=== PATIENT | male | born 1995 | race Caucasian/White ===

== ENCOUNTER 2017-12-20 21:06 | Observation (INO) | payer OTHER ==
[2017-12-20] MEDS ORDERED: Sodium Chloride 0.9% 1,000 ML IV STA (22:28)
[2017-12-20 23:31] LABS: BASO % 0.3 % (0.0-2.0); EOS % 0.1 % (0.0-4.0); HEMOGLOBIN 16.3 g/dL (12.0-18.0); LYMPH # 1.1 K/uL (1.0-4.3); LYMPH % 7.9 % (20.0-40.0); MEAN CELL VOLUME 87.3 fl (80.0-94.0); MEAN CORPUSCULAR HEMOGLOBIN 29.9 pg (27.0-31.0); MEAN CORPUSCULAR HGB CONC 34.3 g/dL (33.0-37.0); MEAN PLATELET VOLUME 8.2 fl (7.2-11.7); MONO # 0.7 K/uL (0.0-0.8); MONO % 4.6 % (0.0-10.0); NEUT # 12.3 K/uL (1.8-7.0); NEUT % 87.1 % (50.0-75.0); NRBC % 0.1 % (0.0-0.0); PLATELET COUNT 197 K/uL (130-400); RBC 5.45 Mil/uL (4.40-5.90); RED CELL DISTRIBUTION WIDTH 12.8 % (11.5-14.5); WHITE BLOOD COUNT 14.1 K/uL (4.8-10.8)
[2017-12-20 23:36] LABS: INR 1.2; PROTHROMBIN TIME 13.7 Seconds (9.8-13.1); URINE BILIRUBIN NEGATIVE (NEGATIVE); URINE BLOOD NEGATIVE (NEGATIVE); URINE CLARITY CLEAR (Clear); URINE COLOR STRAW (YELLOW); URINE GLUCOSE (UA) NEG (Normal); URINE LEUKOCYTE ESTERASE NEG Leu/uL (Negative); URINE PROTEIN NEGATIVE (NEGATIVE); URINE UROBILINOGEN 0.2-1.0 mg/dL (0.2-1.0)
[2017-12-20 23:38] LABS: PARTIAL THROMBOPLASTIN TIME 33.8 Seconds (25.6-37.1)
[2017-12-20 23:41] LABS: ALB/GLOB RATIO 1.2 (1.0-2.1); ALBUMIN 4.5 g/dL (3.5-5.0); ALT/SGPT 37 U/L (21-72); AST/SGOT 25 U/L (17-59); BLOOD UREA NITROGEN 9 mg/dl (9-20); CALCIUM 9.4 mg/dL (8.4-10.2); GFR NON-AFRICAN AMERICAN > 60; LIPASE 99 U/L (23-300)
[2017-12-20 23:50] LABS: VENOUS BLOOD GAS BASE EXCESS 2.1 mmol/L (0.0-2.0); VENOUS BLOOD GAS PCO2 52 mmHg (40-60); VENOUS BLOOD GAS PO2 21 mm/Hg (30-55); VENOUS BLOOD PH 7.35 (7.32-7.43)
--- NOTE | 2017-12-21 00:39 | ED PDOC ---
HPI: Abdomen Time Seen by Provider: 12/20/17 22:18 Chief Complaint (Nursing): GI Problem Chief Complaint (Provider): GI Problem History Per: Patient History/Exam Limitations: no limitations Onset/Duration Of Symptoms: Days (x 2) Current Symptoms Are (Timing): Still Present Location Of Pain/Discomfort: RLQ Quality Of Discomfort: "Pain" Associated Symptoms: Nausea, Vomiting Additional Complaint(s): 22 year old male presents to the ED with worsening RLQ pain and associated nausea and vomiting for the last 2 days. A couple months ago, patient was diagnosed with appendicitis in [place]. At the time, he was told surgery was not an option, although patient is not sure why. He reports feeling fine until sudden onset of symptoms yesterday. Initially, felt nauseous, weak and vomited. Then developed sudden onset of RLQ pain radiating to right testicle. patient is a student at [employer]. Denies testicular bulging and swelling. PMD: none provided. Past Medical History Reviewed: Historical Data, Nursing Documentation, Vital Signs Vital Signs: Last Vital Signs Temp 97.8 F 12/21/17 20:11 Pulse 83 12/21/17 20:11 Resp 18 12/21/17 20:11 BP 99/66 L 12/21/17 20:11 Pulse Ox 99 12/21/17 20:11 - Medical History PMH: No Chronic Diseases - Surgical History Surgical History: No Surg Hx - Family History Family History: States: Unknown Family Hx - Home Medications Home Medications: Ambulatory Orders Medication Instructions Recorded No Known Home Med 12/21/17 - Allergies Allergies/Adverse Reactions: Allergies Allergy/AdvReac Type Severity Reaction Status Date / Time No Known Allergies Allergy Verified 12/20/17 21:52 Review of Systems ROS Statement: Except As Marked, All Systems Reviewed And Found Negative Constitutional: Positive for: Weakness Gastrointestinal: Positive for: Nausea, Vomiting, Abdominal Pain Physical Exam - Reviewed Nursing Documentation Reviewed: Yes Vital Signs Reviewed: Yes - Physical Exam Appears: Positive for: No Acute Distress (otherwise well; however, is in pain and hunched over, sitting on the sie of the stretcher) Head Exam: Positive for: ATRAUMATIC, NORMAL INSPECTION, NORMOCEPHALIC Skin: Positive for: Normal Color, Warm, Dry. Negative for: Rash Eye Exam: Positive for: EOMI, Normal appearance, PERRL Neck: Positive for: Normal, Painless ROM, Supple Cardiovascular/Chest: Positive for: Regular Rate, Rhythm. Negative for: Murmur Respiratory: Positive for: Normal Breath Sounds. Negative for: Respiratory Distress Gastrointestinal/Abdominal: Positive for: Tenderness (rigth lower quadrant tenderness), Rebound, Other (positive obturator's sign) Male Genital Exam: Negative for: erythema (right testicle), testicular tenderness (R), other (swelling, bulging and pain on lifting right testicle) Extremity: Positive for: Normal ROM (full at x4 ). Negative for: Deformity Neurologic/Psych: Positive for: Alert, Oriented (x 3). Negative for: Motor/ Sensory Deficits - Laboratory Results Result Diagrams: 12/21/17 07:01 12/20/17 23:28 - ECG O2 Sat by Pulse Oximetry: 100 (RA) Pulse Ox Interpretation: Normal Medical Decision Making Medical Decision Makin:27 A&P: Workup for acute appendicitis vs other cause of abdominal pain Labs including lipase and lactate sent UA, Morphine for pain and Ct abdomen and pelvis ordered 00:27 --Care endorsed to Dr. Holm pending CT, labs and reevaluation. Scribe Attestation: Documented by Tina Cochran acting as a scribe for Airam Muñoz MD Provider Scribe Attestation: All medical record entries made by the Scribe were at my direction and personally dictated by me. I have reviewed the chart and agree that the record accurately reflects my personal performance of the history, physical exam, medical decision making, and the department course for this patient. I have also personally directed, reviewed, and agree with the discharge instructions and disposition. Disposition - Clinical Impression Clinical Impression: Appendicitis - Patient ED Disposition Is Patient to be Admitted: Transfer of Care - Disposition Disposition: Transfer of Care Disposition Time: 00:27 Condition: FAIR Patient Signed Over To: Ernesto Holm Handoff Comments: pending CT, labs and reevaluation.
--- NOTE | 2017-12-21 00:47 | ED PDOC ---
- Laboratory Results Result Diagrams: 12/21/17 07:01 12/20/17 23:28 - ECG O2 Sat by Pulse Oximetry: 100 (RA) Pulse Ox Interpretation: Normal Medical Decision Making Medical Decision Makin:27 --Care endorsed to this provider pending CT, labs and reevaluation.. 02:19 CT FINDINGS: Lung bases: Intact. No mass. No consolidation. ABDOMEN: Liver: Intact. No mass. Gallbladder and bile ducts: Intact. No calcified stones. No ductal dilation. Pancreas: No mass. No ductal dilation. Spleen: No splenomegaly. Adrenals: No mass. Kidneys and ureters: No solid mass. No hydronephrosis. Stomach and bowel: Large amount of retained feces throughout the colon. PELVIS: Appendix: Appendix is thickened with nathen-appendix inflammatory changes. 4 mm appendicolith at the base of the appendix. Bladder: No mass. Reproductive: Unremarkable as visualized. ABDOMEN and PELVIS: Intraperitoneal space: Trace free fluid right the pelvis. Bones/joints: No acute fracture. No dislocation. Soft tissues: No radiopaque foreign body. Vasculature: No aortic aneurysm. Lymph nodes: No enlarged lymph nodes. IMPRESSION: 1. Acute appendicitis. 2. Trace free fluid right deep pelvis. 3. Large amount of retained feces throughout the colon. Case discussed with surgical garment fitter. ABx and cultures ordered. Patient informed of results, well appearing at this time. Dr. Mitchell made aware for admisison. Scribe Attestation: Documented by Tina Cochran acting as a scribe for Ernesto Holm MD Provider Scribe Attestation: All medical record entries made by the Scribe were at my direction and personally dictated by me. I have reviewed the chart and agree that the record accurately reflects my personal performance of the history, physical exam, medical decision making, and the department course for this patient. I have also personally directed, reviewed, and agree with the discharge instructions and disposition. Disposition - Clinical Impression Clinical Impression: Appendicitis - POA Present On Arrival: None - Disposition Disposition: Admitted as In-Patient Disposition Time: 04:00 Condition: FAIR
[2017-12-21] MEDS ORDERED: Sodium Chloride 0.9% 50 ML IV ONE (00:48)
[2017-12-21] MEDS ORDERED: Iohexol 300 100 ML IJ ONE (00:48)
[2017-12-21 01:54] LABS: BANDS 1 % (0-2); LARGE PLATELETS PRESENT; LYMPHOCYTE 6 % (20-50); MONOCYTE 5 % (0-10); NEUTROPHIL 88 % (42-75); PLATELET ESTIMATE NORMAL (NORMAL); TOTAL CELLS COUNTED 100
[2017-12-21] MEDS ORDERED: Piperacillin/Tazobact 3.375 GM in Sodium Chloride 0.9% 100 ML IVPB STA (02:47)
[2017-12-21] MEDS ORDERED: Piperacillin/Tazobact 3.375 gm Inj IVPB ONE (03:25)
--- NOTE | 2017-12-21 05:15 | CP.PCM.HP ---
History of Present Illness - History of Present Illness History of Present Illness: PMD: None Chief complaint: Abdominal Pain The patient was seen and examined in the ED HPI: 22 years old male, here in the [facility] from [place] one month ago, comes with 2 days of sharp, generalized abdominal pain , most severe at the RLQ and radiating to the mid right back and to the right groin, associated with nausea and vomiting and mild dizziness experienced in the ED. The pain was not relieved with Omeprazole. This patient had the same symptoms over a month ago in [place] where with CT abdomen he was diagnosed with Acute Appendicitis. He was treated conservatively and symptoms improved. No fever, diarrhea, dysuria nor urinary frequency. PMH: Appendicitis PSH: Denies SH: No illegal drug use; No Alcohol; Never smoked; Post graduate at [employer]. FH: States: No known family Hx Allergies: KNDA Medication: Denies: Present on Admission - Present on Admission Any Indicators Present on Admission: No History of DVT/PE: No History of Uncontrolled Diabetes: No Urinary Catheter: No Decubitus Ulcer Present: No Review of Systems - Constitutional Constitutional: absent: Chills, Fatigue, Fever, Headache - EENT Eyes: absent: Blurred Vision, Diplopia, Floaters, Requires Corrective Lenses Ears: absent: Decreased Hearing, Ear Discharge, Tinnitus Nose/Mouth/Throat: absent: Epistaxis, Nasal Congestion, Nasal Discharge, Sinus Pain, Sinus Pressure - Cardiovascular Cardiovascular: absent: Chest Pain, Dyspnea, Edema - Respiratory Respiratory: absent: Cough, Dyspnea, Wheezing, Stridor - Gastrointestinal Gastrointestinal: Abdominal Pain. absent: Constipation, Diarrhea - Genitourinary Genitourinary: absent: Dysuria, Urinary Frequency - Musculoskeletal Musculoskeletal: Back Pain. absent: Arthralgias, Muscle Cramps, Myalgias - Integumentary Integumentary: absent: Pruritus, Rash, Skin Ulcer, Sores, Striae, Swelling - Neurological Neurological: Dizziness. absent: Confusion, Focal Weakness, Headaches, Weakness - Psychiatric Psychiatric: absent: Anxiety, Depression, Panic Attacks - Endocrine Endocrine: absent: Palpitations, Polydipsia, Polyphagia, Polyuria - Hematologic/Lymphatic Hematologic: absent: Easy Bleeding, Easy Bruising Past Patient History - Past Medical History & Family History Past Medical History?: Yes - Past Social History Smoking Status: Never Smoked Chewing Tobacco Use: No Cigar Use: No Alcohol: None Drugs: Denies - CARDIAC Hx Cardiac Disorders: No - PULMONARY Hx Respiratory Disorders: No - NEUROLOGICAL Hx Neurological Disorder: No - HEENT Hx HEENT Problems: No - RENAL Hx Chronic Kidney Disease: No - ENDOCRINE/METABOLIC Hx Endocrine Disorders: No - HEMATOLOGICAL/ONCOLOGICAL Hx Blood Disorders: No - INTEGUMENTARY Hx Dermatological Problems: No - MUSCULOSKELETAL/RHEUMATOLOGICAL Hx Musculoskeletal Disorders: No - GASTROINTESTINAL Hx Gastrointestinal Disorders: No Other/Comment: Appendicitis - GENITOURINARY/GYNECOLOGICAL Hx Genitourinary Disorders: No - PSYCHIATRIC Hx Psychophysiologic Disorder: No Hx Substance Use: No - SURGICAL HISTORY Hx Surgeries: No - ANESTHESIA Hx Anesthesia: No Meds Allergies/Adverse Reactions: Allergies Allergy/AdvReac Type Severity Reaction Status Date / Time No Known Allergies Allergy Verified 12/20/17 21:52 Physical Exam - Constitutional Appears: No Acute Distress - Head Exam Head Exam: ATRAUMATIC, NORMAL INSPECTION, NORMOCEPHALIC - Eye Exam Eye Exam: EOMI, Normal appearance Pupil Exam: NORMAL ACCOMODATION, PERRL - ENT Exam ENT Exam: Mucous Membranes Moist, Normal Exam, Normal External Ear Exam - Neck Exam Neck exam: Positive for: Full Rom, Normal Inspection. Negative for: Lymphadenopathy, Tenderness - Respiratory Exam Respiratory Exam: Clear to Auscultation Bilateral. absent: Rales, Rhonchi, Wheezes - Cardiovascular Exam Cardiovascular Exam: REGULAR RHYTHM, RRR, +S1, +S2 - GI/Abdominal Exam Additional comments: Flat, Soft, decreased Bowel sounds, Tender at the RLQ with no guarding, mild localized rebound tenderness. - Rectal Exam Rectal Exam: Deferred - Extremities Exam Extremities exam: Positive for: full ROM, normal inspection. Negative for: calf tenderness, pedal edema - Back Exam Back exam: CVA tenderness (R), NORMAL INSPECTION. absent: CVA tenderness (L) - Neurological Exam Neurological exam: Alert, CN II-XII Intact, Oriented x3, Reflexes Normal - Psychiatric Exam Psychiatric exam: Normal Affect, Normal Mood - Skin Skin Exam: Dry, Intact, Normal Color, Warm Results - Vital Signs Recent Vital Signs: Last Vital Signs Temp 98.4 F 12/21/17 03:59 Pulse 63 12/21/17 03:59 Resp 18 12/21/17 03:59 BP 100/56 L 12/21/17 03:59 Pulse Ox 99 09/16/18 03:59 - Labs Result Diagrams: 12/20/17 23:28 12/20/17 23:28 Labs: Laboratory Results - last 24 hr 12/20/17 12/20/17 12/20/17 22:55 23:28 23:28 WBC 14.1 H RBC 5.45 Hgb 16.3 Hct 47.5 MCV 87.3 MCH 29.9 MCHC 34.3 RDW 12.8 Plt Count 197 MPV 8.2 Neut % (Auto) 87.1 H Lymph % (Auto) 7.9 L Chase % (Auto) 4.6 Eos % (Auto) 0.1 Baso % (Auto) 0.3 Neut # (Auto) 12.3 H Lymph # (Auto) 1.1 Chase # (Auto) 0.7 Eos # (Auto) 0.0 Baso # (Auto) 0.0 Neutrophils % (Manual) 88 H Band Neutrophils % 1 Lymphocytes % (Manual) 6 L Monocytes % (Manual) 5 Platelet Estimate Normal Large Platelets Present PT INR APTT pO2 VBG pH VBG pCO2 VBG HCO3 VBG Total CO2 VBG O2 Sat (Calc) VBG Base Excess VBG Potassium Glucose Lactate FiO2 Sodium 139 Potassium 4.1 Chloride 102 Carbon Dioxide 27 Anion Gap 14 BUN 9 Creatinine 0.9 Est GFR ( Amer) > 60 Est GFR (Non-Af Amer) > 60 Random Glucose 110 Calcium 9.4 Total Bilirubin 0.9 AST 25 ALT 37 Alkaline Phosphatase 75 Total Protein 8.3 H Albumin 4.5 Globulin 3.8 Albumin/Globulin Ratio 1.2 Lipase 99 Venous Blood Potassium Urine Color Urine Clarity Urine pH Ur Specific Pruden Urine Protein Urine Glucose (UA) Urine Ketones Urine Blood Urine Nitrate Urine Bilirubin Urine Urobilinogen Ur Leukocyte Esterase Urine RBC (Auto) Urine Microscopic WBC Blood Type B POSITIVE Blood Type Confirm Antibody Screen Negative BBK History Checked No verified bt 12/20/17 12/20/17 12/20/17 23:28 23:28 23:46 WBC RBC Hgb Hct MCV MCH MCHC RDW Plt Count MPV Neut % (Auto) Lymph % (Auto) Chase % (Auto) Eos % (Auto) Baso % (Auto) Neut # (Auto) Lymph # (Auto) Chase # (Auto) Eos # (Auto) Baso # (Auto) Neutrophils % (Manual) Band Neutrophils % Lymphocytes % (Manual) Monocytes % (Manual) Platelet Estimate Large Platelets PT 13.7 H INR 1.2 APTT 33.8 pO2 21 L VBG pH 7.35 VBG pCO2 52 VBG HCO3 24.8 VBG Total CO2 30.3 H VBG O2 Sat (Calc) 35.1 L VBG Base Excess 2.1 H VBG Potassium 4.1 Glucose 113 H Lactate 1.4 FiO2 21.0 Sodium 136.0 Potassium Chloride 102.0 Carbon Dioxide Anion Gap BUN Creatinine Est GFR ( Amer) Est GFR (Non-Af Amer) Random Glucose Calcium Total Bilirubin AST ALT Alkaline Phosphatase Total Protein Albumin Globulin Albumin/Globulin Ratio Lipase Venous Blood Potassium 4.1 Urine Color Straw Urine Clarity Clear Urine pH 7.0 Ur Specific Pruden 1.006 Urine Protein Negative Urine Glucose (UA) Neg Urine Ketones Negative Urine Blood Negative Urine Nitrate Negative Urine Bilirubin Negative Urine Urobilinogen 0.2-1.0 Ur Leukocyte Esterase Neg Urine RBC (Auto) 1 Urine Microscopic WBC < 1 Blood Type Blood Type Confirm Antibody Screen BBK History Checked 12/21/17 00:31 WBC RBC Hgb Hct MCV MCH MCHC RDW Plt Count MPV Neut % (Auto) Lymph % (Auto) Chase % (Auto) Eos % (Auto) Baso % (Auto) Neut # (Auto) Lymph # (Auto) Chase # (Auto) Eos # (Auto) Baso # (Auto) Neutrophils % (Manual) Band Neutrophils % Lymphocytes % (Manual) Monocytes % (Manual) Platelet Estimate Large Platelets PT INR APTT pO2 VBG pH VBG pCO2 VBG HCO3 VBG Total CO2 VBG O2 Sat (Calc) VBG Base Excess VBG Potassium Glucose Lactate FiO2 Sodium Potassium Chloride Carbon Dioxide Anion Gap BUN Creatinine Est GFR ( Amer) Est GFR (Non-Af Amer) Random Glucose Calcium Total Bilirubin AST ALT Alkaline Phosphatase Total Protein Albumin Globulin Albumin/Globulin Ratio Lipase Venous Blood Potassium Urine Color Urine Clarity Urine pH Ur Specific Pruden Urine Protein Urine Glucose (UA) Urine Ketones Urine Blood Urine Nitrate Urine Bilirubin Urine Urobilinogen Ur Leukocyte Esterase Urine RBC (Auto) Urine Microscopic WBC Blood Type Blood Type Confirm B POSITIVE Antibody Screen BBK History Checked - EKG Data EKG comments: NSR 81/min - Imaging and Cardiology CT scan - abdomen Status: Report reviewed by me Additional comment: FINDINGS: Lung bases: Intact. No mass. No consolidation. ABDOMEN: Liver: Intact. No mass. Gallbladder and bile ducts: Intact. No calcified stones. No ductal dilation. Pancreas: No mass. No ductal dilation. Spleen: No splenomegaly. Adrenals: No mass. Kidneys and ureters: No solid mass. No hydronephrosis. Stomach and bowel: Large amount of retained feces throughout the colon. PELVIS: Appendix: Appendix is thickened with nathen-appendix inflammatory changes. 4 mm appendicolith at the base of the appendix. Bladder: No mass. Reproductive: Unremarkable as visualized. ABDOMEN and PELVIS: Intraperitoneal space: Trace free fluid right the pelvis. Bones/joints: No acute fracture. No dislocation. Soft tissues: No radiopaque foreign body. Vasculature: No aortic aneurysm. Lymph nodes: No enlarged lymph nodes. IMPRESSION: 1. Acute appendicitis. 2. Trace free fluid right deep pelvis. 3. Large amount of retained feces throughout the colon. Assessment & Plan - Assessment and Plan (Free Text) Assessment: #. Acute Appencicitis #. Constipation Plan: 22 years old male, diagnosed with Appendicitis in [place] over one month ago, treated conservatively, now comes with 2 days of RLQ abdominal pain with nausea , vomiting and dizziness. no fever, dusuria nor diarrhea. #. Acute Appendicitis - Consult Surgery , Dr Palacios - NPO - IV Fluids - Antibiotics Zosyn - Zofran for nausea/vomits - Pain management with Morphine #. Constipation - Enema #. Stress ulcer Prophylaxis with Pantoprazole #. DVT prophylaxis. - SCD now and Lovenox starting on day after surgery #. Code Status: Full - Date & Time Date: 12/21/17 Time: 05:15
[2017-12-21] MEDS: Lactated Ringer's 1,000 ML IV SCH ×3 (05:30→16:40)
--- NOTE | 2017-12-21 06:36 | CP.PCM.CON ---
<Kassandra Sousa - Last Filed: 12/21/17 07:25> History of Present Illness - History of Present Illness History of Present Illness: Surgery Consult: Dr. Palacios Pt is a 22M with no significant PMHx who presented to [facility] with complaints of abdominal pain that started yesterday evening. Pt states he started having dull abdominal pain around his umbillicus that eventually localized to the RLQ. He admits to associated nausea and 2 episodes of non-bloody, non-bilious vomiting. He denies diarrhea/constipation. Pt notes that he had a similar episode 8 months ago in [place] and he was given antibiotics which improved his pain however no surgery was done at the time. In the ER, pt had a CT abd/pelvis which showed dilated appendix with appendicolith consisted with acute appendicitis. Surgery called to evaluate. Currently, pt is resting comfortably and states his abdominal pain is a little better after getting the pain medication. He denies any more episodes of vomiting. Denies fevers/chills, chest pain or SOB. PMHx: denies PSHx: denies SocialHx: denies smoking, EtOH/drugs NKDA Review of Systems - Review of Systems All systems: reviewed and no additional remarkable complaints except (as per HPI ) Past Patient History - Past Medical History & Family History Past Medical History?: Yes - Past Social History Smoking Status: Never Smoked Chewing Tobacco Use: No Cigar Use: No Alcohol: None Drugs: Denies - CARDIAC Hx Cardiac Disorders: No - PULMONARY Hx Respiratory Disorders: No - NEUROLOGICAL Hx Neurological Disorder: No - HEENT Hx HEENT Problems: No - RENAL Hx Chronic Kidney Disease: No - ENDOCRINE/METABOLIC Hx Endocrine Disorders: No - HEMATOLOGICAL/ONCOLOGICAL Hx Blood Disorders: No - INTEGUMENTARY Hx Dermatological Problems: No - MUSCULOSKELETAL/RHEUMATOLOGICAL Hx Musculoskeletal Disorders: No - GASTROINTESTINAL Hx Gastrointestinal Disorders: No Other/Comment: Appendicitis - GENITOURINARY/GYNECOLOGICAL Hx Genitourinary Disorders: No - PSYCHIATRIC Hx Psychophysiologic Disorder: No Hx Substance Use: No - SURGICAL HISTORY Hx Surgeries: No - ANESTHESIA Hx Anesthesia: No Meds Allergies/Adverse Reactions: Allergies Allergy/AdvReac Type Severity Reaction Status Date / Time No Known Allergies Allergy Verified 12/20/17 21:52 - Medications Medications: Current Medications Lactated Ringer's (Lactated Ringer's) 1,000 mls @ 100 mls/hr IV .Q10H [facility] Stop: 12/23/17 04:16 Last Admin: 12/21/17 05:30 Dose: 100 mls/hr Piperacillin Sod/Tazobactam (Sod 3.375 gm/ Sodium Chloride) 100 mls @ 100 mls/ hr IVPB Q6 [facility] PRN Reason: Protocol Stop: 12/23/17 10:01 Morphine Sulfate (Morphine) 2 mg IVP Q4 PRN PRN Reason: Pain, moderate (4-7) Ondansetron HCl (Zofran Inj) 4 mg IVP Q4 PRN PRN Reason: Nausea/Vomiting Pantoprazole Sodium (Protonix Inj) 40 mg IVP DAILY [facility] Physical Exam - Constitutional Appears: Well, No Acute Distress - Head Exam Head Exam: ATRAUMATIC, NORMOCEPHALIC - Eye Exam Eye Exam: Normal appearance - ENT Exam ENT Exam: Mucous Membranes Moist - Respiratory Exam Respiratory Exam: NORMAL BREATHING PATTERN - Cardiovascular Exam Cardiovascular Exam: RRR - GI/Abdominal Exam GI & Abdominal Exam: Soft, Tenderness (in the RLQ ). absent: Distended, Guarding, Rebound - Neurological Exam Neurological exam: Alert, Oriented x3 - Skin Skin Exam: Dry, Warm Results - Vital Signs Recent Vital Signs: Last Vital Signs Temp 98.5 F 12/21/17 05:29 Pulse 57 L 12/21/17 05:29 Resp 18 12/21/17 05:29 BP 100/52 L 12/21/17 05:29 Pulse Ox 99 12/21/17 05:29 - Labs Result Diagrams: 12/20/17 23:28 12/20/17 23:28 Labs: Laboratory Results - last 24 hr 12/20/17 12/20/17 12/20/17 22:55 23:28 23:28 WBC 14.1 H RBC 5.45 Hgb 16.3 Hct 47.5 MCV 87.3 MCH 29.9 MCHC 34.3 RDW 12.8 Plt Count 197 MPV 8.2 Neut % (Auto) 87.1 H Lymph % (Auto) 7.9 L [place] % (Auto) 4.6 Eos % (Auto) 0.1 Baso % (Auto) 0.3 Neut # (Auto) 12.3 H Lymph # (Auto) 1.1 [place] # (Auto) 0.7 Eos # (Auto) 0.0 Baso # (Auto) 0.0 Neutrophils % (Manual) 88 H Band Neutrophils % 1 Lymphocytes % (Manual) 6 L Monocytes % (Manual) 5 Platelet Estimate Normal Large Platelets Present PT INR APTT pO2 VBG pH VBG pCO2 VBG HCO3 VBG Total CO2 VBG O2 Sat (Calc) VBG Base Excess VBG Potassium Glucose Lactate FiO2 Sodium 139 Potassium 4.1 Chloride 102 Carbon Dioxide 27 Anion Gap 14 BUN 9 Creatinine 0.9 Est GFR ( Amer) > 60 Est GFR (Non-Af Amer) > 60 Random Glucose 110 Calcium 9.4 Total Bilirubin 0.9 AST 25 ALT 37 Alkaline Phosphatase 75 Total Protein 8.3 H Albumin 4.5 Globulin 3.8 Albumin/Globulin Ratio 1.2 Lipase 99 Venous Blood Potassium Urine Color Urine Clarity Urine pH Ur Specific [place] Urine Protein Urine Glucose (UA) Urine Ketones Urine Blood Urine Nitrate Urine Bilirubin Urine Urobilinogen Ur Leukocyte Esterase Urine RBC (Auto) Urine Microscopic WBC Blood Type B POSITIVE Blood Type Confirm Antibody Screen Negative BBK History Checked No verified bt 12/20/17 12/20/17 12/20/17 23:28 23:28 23:46 WBC RBC Hgb Hct MCV MCH MCHC RDW Plt Count MPV Neut % (Auto) Lymph % (Auto) [place] % (Auto) Eos % (Auto) Baso % (Auto) Neut # (Auto) Lymph # (Auto) [place] # (Auto) Eos # (Auto) Baso # (Auto) Neutrophils % (Manual) Band Neutrophils % Lymphocytes % (Manual) Monocytes % (Manual) Platelet Estimate Large Platelets PT 13.7 H INR 1.2 APTT 33.8 pO2 21 L VBG pH 7.35 VBG pCO2 52 VBG HCO3 24.8 VBG Total CO2 30.3 H VBG O2 Sat (Calc) 35.1 L VBG Base Excess 2.1 H VBG Potassium 4.1 Glucose 113 H Lactate 1.4 FiO2 21.0 Sodium 136.0 Potassium Chloride 102.0 Carbon Dioxide Anion Gap BUN Creatinine Est GFR ( Amer) Est GFR (Non-Af Amer) Random Glucose Calcium Total Bilirubin AST ALT Alkaline Phosphatase Total Protein Albumin Globulin Albumin/Globulin Ratio Lipase Venous Blood Potassium 4.1 Urine Color Straw Urine Clarity Clear Urine pH 7.0 Ur Specific [place] 1.006 Urine Protein Negative Urine Glucose (UA) Neg Urine Ketones Negative Urine Blood Negative Urine Nitrate Negative Urine Bilirubin Negative Urine Urobilinogen 0.2-1.0 Ur Leukocyte Esterase Neg Urine RBC (Auto) 1 Urine Microscopic WBC < 1 Blood Type Blood Type Confirm Antibody Screen BBK History Checked 12/21/17 00:31 WBC RBC Hgb Hct MCV MCH MCHC RDW Plt Count MPV Neut % (Auto) Lymph % (Auto) [place] % (Auto) Eos % (Auto) Baso % (Auto) Neut # (Auto) Lymph # (Auto) [place] # (Auto) Eos # (Auto) Baso # (Auto) Neutrophils % (Manual) Band Neutrophils % Lymphocytes % (Manual) Monocytes % (Manual) Platelet Estimate Large Platelets PT INR APTT pO2 VBG pH VBG pCO2 VBG HCO3 VBG Total CO2 VBG O2 Sat (Calc) VBG Base Excess VBG Potassium Glucose Lactate FiO2 Sodium Potassium Chloride Carbon Dioxide Anion Gap BUN Creatinine Est GFR ( Amer) Est GFR (Non-Af Amer) Random Glucose Calcium Total Bilirubin AST ALT Alkaline Phosphatase Total Protein Albumin Globulin Albumin/Globulin Ratio Lipase Venous Blood Potassium Urine Color Urine Clarity Urine pH Ur Specific [place] Urine Protein Urine Glucose (UA) Urine Ketones Urine Blood Urine Nitrate Urine Bilirubin Urine Urobilinogen Ur Leukocyte Esterase Urine RBC (Auto) Urine Microscopic WBC Blood Type Blood Type Confirm B POSITIVE Antibody Screen BBK History Checked - Imaging and Cardiology CT scan - abdomen Status: Image reviewed by me, Report reviewed by me Assessment & Plan - Assessment and Plan (Free Text) Assessment: 22M with acute appendicitis Plan: - Keep NPO with IVF - IV ABX - plan for OR for lap appendectomy - d/w Dr. Suzanne Sousa <Esau Palacios - Last Filed: 12/21/17 16:00> History of Present Illness - History of Present Illness History of Present Illness: Patient was seen and examined at the bedside. Agree with resident's note above. Meds - Medications Medications: Current Medications Hydromorphone HCl (Dilaudid) 2 mg IVP Q4 PRN PRN Reason: Pain, moderate (4-7) Lactated Ringer's (Lactated Ringer's) 1,000 mls @ 100 mls/hr IV .Q10H [facility] Stop: 12/23/17 04:16 Last Admin: 12/21/17 05:30 Dose: 100 mls/hr Piperacillin Sod/Tazobactam (Sod 3.375 gm/ Sodium Chloride) 100 mls @ 100 mls/ hr IVPB Q6 [facility] PRN Reason: Protocol Stop: 12/23/17 10:01 Last Admin: 12/21/17 09:10 Dose: 100 mls/hr Lactated Ringer's (Lactated Ringer's) 1,000 mls @ 75 mls/hr IV .[id number] [facility] Meperidine HCl (Demerol) 25 mg IVP ONCE PRN PRN Reason: Shivering/Rigor Stop: 12/21/17 17:46 Ondansetron HCl (Zofran Inj) 4 mg IVP Q4 PRN PRN Reason: Nausea/Vomiting Oxycodone/Acetaminophen (Percocet 5/325 Mg Tab) 1 tab PO Q4 PRN PRN Reason: Pain, moderate (4-7) Stop: 12/24/17 15:47 Oxycodone/Acetaminophen (Percocet 5/325 Mg Tab) 2 tab PO Q4 PRN PRN Reason: Pain, severe (8-10) Stop: 12/24/17 15:47 Pantoprazole Sodium (Protonix Inj) 40 mg IVP DAILY [facility] Last Admin: 12/21/17 09:12 Dose: 40 mg Physical Exam - GI/Abdominal Exam Additional comments: soft, RLQ tenderness, ND, BS+, no rebound, no guarding Results - Vital Signs Recent Vital Signs: Last Vital Signs Temp 97.9 F 12/21/17 07:55 Pulse 61 12/21/17 07:55 Resp 19 12/21/17 07:55 BP 97/58 L 12/21/17 07:55 Pulse Ox 99 12/21/17 07:55 - Labs Result Diagrams: 12/21/17 07:01 12/20/17 23:28 Labs: Laboratory Results - last 24 hr 12/20/17 12/20/17 12/20/17 22:55 23:28 23:28 WBC 14.1 H RBC 5.45 Hgb 16.3 Hct 47.5 MCV 87.3 MCH 29.9 MCHC 34.3 RDW 12.8 Plt Count 197 MPV 8.2 Neut % (Auto) 87.1 H Lymph % (Auto) 7.9 L [place] % (Auto) 4.6 Eos % (Auto) 0.1 Baso % (Auto) 0.3 Neut # (Auto) 12.3 H Lymph # (Auto) 1.1 [place] # (Auto) 0.7 Eos # (Auto) 0.0 Baso # (Auto) 0.0 Neutrophils % (Manual) 88 H Band Neutrophils % 1 Lymphocytes % (Manual) 6 L Monocytes % (Manual) 5 Platelet Estimate Normal Large Platelets Present PT INR APTT pO2 VBG pH VBG pCO2 VBG HCO3 VBG Total CO2 VBG O2 Sat (Calc) VBG Base Excess VBG Potassium Glucose Lactate FiO2 Sodium 139 Potassium 4.1 Chloride 102 Carbon Dioxide 27 Anion Gap 14 BUN 9 Creatinine 0.9 Est GFR ( Amer) > 60 Est GFR (Non-Af Amer) > 60 Random Glucose 110 Calcium 9.4 Total Bilirubin 0.9 AST 25 ALT 37 Alkaline Phosphatase 75 Total Protein 8.3 H Albumin 4.5 Globulin 3.8 Albumin/Globulin Ratio 1.2 Lipase 99 Venous Blood Potassium Urine Color Urine Clarity Urine pH Ur Specific [place] Urine Protein Urine Glucose (UA) Urine Ketones Urine Blood Urine Nitrate Urine Bilirubin Urine Urobilinogen Ur Leukocyte Esterase Urine RBC (Auto) Urine Microscopic WBC Blood Type B POSITIVE Blood Type Confirm Antibody Screen Negative BBK History Checked No verified bt 12/20/17 12/20/17 12/20/17 23:28 23:28 23:46 WBC RBC Hgb Hct MCV MCH MCHC RDW Plt Count MPV Neut % (Auto) Lymph % (Auto) [place] % (Auto) Eos % (Auto) Baso % (Auto) Neut # (Auto) Lymph # (Auto) [place] # (Auto) Eos # (Auto) Baso # (Auto) Neutrophils % (Manual) Band Neutrophils % Lymphocytes % (Manual) Monocytes % (Manual) Platelet Estimate Large Platelets PT 13.7 H INR 1.2 APTT 33.8 pO2 21 L VBG pH 7.35 VBG pCO2 52 VBG HCO3 24.8 VBG Total CO2 30.3 H VBG O2 Sat (Calc) 35.1 L VBG Base Excess 2.1 H VBG Potassium 4.1 Glucose 113 H Lactate 1.4 FiO2 21.0 Sodium 136.0 Potassium Chloride 102.0 Carbon Dioxide Anion Gap BUN Creatinine Est GFR ( Amer) Est GFR (Non-Af Amer) Random Glucose Calcium Total Bilirubin AST ALT Alkaline Phosphatase Total Protein Albumin Globulin Albumin/Globulin Ratio Lipase Venous Blood Potassium 4.1 Urine Color Straw Urine Clarity Clear Urine pH 7.0 Ur Specific [place] 1.006 Urine Protein Negative Urine Glucose (UA) Neg Urine Ketones Negative Urine Blood Negative Urine Nitrate Negative Urine Bilirubin Negative Urine Urobilinogen 0.2-1.0 Ur Leukocyte Esterase Neg Urine RBC (Auto) 1 Urine Microscopic WBC < 1 Blood Type Blood Type Confirm Antibody Screen BBK History Checked 12/21/17 12/21/17 00:31 07:01 WBC 11.2 H RBC 5.05 Hgb 15.1 Hct 44.1 MCV 87.4 MCH 29.9 MCHC 34.3 RDW 12.8 Plt Count 181 MPV 7.8 Neut % (Auto) 75.3 H Lymph % (Auto) 17.0 L [place] % (Auto) 7.1 Eos % (Auto) 0.1 Baso % (Auto) 0.5 Neut # (Auto) 8.4 H Lymph # (Auto) 1.9 [place] # (Auto) 0.8 Eos # (Auto) 0.0 Baso # (Auto) 0.1 Neutrophils % (Manual) Band Neutrophils % Lymphocytes % (Manual) Monocytes % (Manual) Platelet Estimate Large Platelets PT INR APTT pO2 VBG pH VBG pCO2 VBG HCO3 VBG Total CO2 VBG O2 Sat (Calc) VBG Base Excess VBG Potassium Glucose Lactate FiO2 Sodium Potassium Chloride Carbon Dioxide Anion Gap BUN Creatinine Est GFR ( Amer) Est GFR (Non-Af Amer) Random Glucose Calcium Total Bilirubin AST ALT Alkaline Phosphatase Total Protein Albumin Globulin Albumin/Globulin Ratio Lipase Venous Blood Potassium Urine Color Urine Clarity Urine pH Ur Specific [place] Urine Protein Urine Glucose (UA) Urine Ketones Urine Blood Urine Nitrate Urine Bilirubin Urine Urobilinogen Ur Leukocyte Esterase Urine RBC (Auto) Urine Microscopic WBC Blood Type Blood Type Confirm B POSITIVE Antibody Screen BBK History Checked
[2017-12-21 07:42] LABS: BASO # 0.1 K/uL (0.0-0.2); BASO % 0.5 % (0.0-2.0); EOS % 0.1 % (0.0-4.0); HEMOGLOBIN 15.1 g/dL (12.0-18.0); LYMPH # 1.9 K/uL (1.0-4.3); MEAN CELL VOLUME 87.4 fl (80.0-94.0); MEAN CORPUSCULAR HEMOGLOBIN 29.9 pg (27.0-31.0); MEAN CORPUSCULAR HGB CONC 34.3 g/dL (33.0-37.0); MEAN PLATELET VOLUME 7.8 fl (7.2-11.7); MONO # 0.8 K/uL (0.0-0.8); MONO % 7.1 % (0.0-10.0); NEUT # 8.4 K/uL (1.8-7.0); NEUT % 75.3 % (50.0-75.0); NRBC % 0.1 % (0.0-0.0); RBC 5.05 Mil/uL (4.40-5.90); RED CELL DISTRIBUTION WIDTH 12.8 % (11.5-14.5); WHITE BLOOD COUNT 11.2 K/uL (4.8-10.8)
--- NOTE | 2017-12-21 08:04 | CARD ---
APPROVED REPORT Date of service: 12/20/2017 <Conclusion> Normal sinus rhythm Normal ECG
--- NOTE | 2017-12-21 08:56 | CP.PCM.PN ---
Subjective - Date & Time of Evaluation Date of Evaluation: 12/21/17 Time of Evaluation: 08:55 Objective - Vital Signs/Intake and Output Vital Signs (last 24 hours): Temp Pulse Resp BP Pulse Ox 97.9 F 61 19 97/58 L 99 12/21/17 07:55 12/21/17 07:55 12/21/17 07:55 12/21/17 07:55 12/21/17 07:55 - Medications Medications: Current Medications Lactated Ringer's (Lactated Ringer's) 1,000 mls @ 100 mls/hr IV .Q10H [facility] Stop: 12/23/17 04:16 Last Admin: 12/21/17 05:30 Dose: 100 mls/hr Piperacillin Sod/Tazobactam (Sod 3.375 gm/ Sodium Chloride) 100 mls @ 100 mls/ hr IVPB Q6 [facility] PRN Reason: Protocol Stop: 12/23/17 10:01 Morphine Sulfate (Morphine) 2 mg IVP Q4 PRN PRN Reason: Pain, moderate (4-7) Ondansetron HCl (Zofran Inj) 4 mg IVP Q4 PRN PRN Reason: Nausea/Vomiting Pantoprazole Sodium (Protonix Inj) 40 mg IVP DAILY [facility] - Labs Labs: 12/21/17 07:01 12/20/17 23:28 PT 13.7 Seconds (9.8-13.1) H 12/20/17 23:28 INR 1.2 12/20/17 23:28 APTT 33.8 Seconds (25.6-37.1) 12/20/17 23:28 - Constitutional Appears: Well, Non-toxic, No Acute Distress - Cardiovascular Exam Cardiovascular Exam: REGULAR RHYTHM, RRR, +S1, +S2. absent: Tachycardia, Clicks , Diastolic murmur, Gallop, JVD, Rubs, Murmur - GI/Abdominal Exam GI & Abdominal Exam: Soft, Tenderness (RLQ tenderness- at Mcburney's point; + Rovsing's sign; ), Normal Bowel Sounds. absent: Distended, Guarding, Rigid, Rebound
[2017-12-21] MEDS: Piperacillin/Tazobact 3.375 GM in Sodium Chloride 0.9% 100 ML IVPB SCH ×3 (09:10→22:24)
--- NOTE | 2017-12-21 11:52 | CT ---
Date of service: 12/21/2017 PROCEDURE: CT Abdomen and Pelvis with contrast HISTORY: RLQ pain COMPARISON: None. TECHNIQUE: Contrast dose: 90 milliliters Radiation dose: Total exam DLP = 330 mGy-cm. This CT exam was performed using one or more of the following dose reduction techniques: Automated exposure control, adjustment of the mA and/or kV according to patient size, and/or use of iterative reconstruction technique. FINDINGS: LOWER THORAX: Unremarkable. LIVER: Unremarkable. No gross lesion or ductal dilatation. GALLBLADDER AND BILE DUCTS: Unremarkable. PANCREAS: Unremarkable. No gross lesion or ductal dilatation. SPLEEN: Unremarkable. ADRENALS: Unremarkable. No mass. KIDNEYS AND URETERS: Unremarkable. No hydronephrosis. No solid mass. VASCULATURE: Unremarkable. No aortic aneurysm. BOWEL: Unremarkable. No obstruction. No gross mural thickening. APPENDIX: There is an abnormal appendix consistent with appendicitis. There is dilated appendix and 4 millimeter proximal appendicolith. In addition there is periappendiceal inflammatory changes and appendiceal wall thickening. No focal fluid collection is noted to suggest appendiceal abscess. Mild adjacent right lower pelvic fluid is identified. A few small scattered small lymph nodes are seen. PERITONEUM: Mild ascites in the right lower quadrant. LYMPH NODES: A few small lymph nodes are noted in the right lower quadrant. BLADDER: Unremarkable. REPRODUCTIVE: Unremarkable. BONES: No acute fracture. OTHER FINDINGS: None. IMPRESSION: Imaging findings consistent with appendicitis. This agrees with preliminary report.
[2017-12-21] MEDS ORDERED: Midazolam 2 MG/2 ML VIAL ONE (14:11)
[2017-12-21] MEDS ORDERED: Propofol 10 mg/ml Inj (20 ML) ONE (14:11)
[2017-12-21] MEDS ORDERED: Rocuronium 10 mg/ml (5 ml) ONE (14:13)
[2017-12-21] MEDS ORDERED: Lactated Ringer's 500 ML IV ONE (14:39)
[2017-12-21] MEDS ORDERED: Bupivacaine HCl 0.5% PF (30 ml) Inj ONE (15:00)
[2017-12-21] MEDS ORDERED: Desflurane Inhalation Anesthetic Liq (240 ml) ONE (15:11)
[2017-12-21] MEDS ORDERED: Bupivacaine 0.5% Inj(30mL) IJ ONE (15:32)
[2017-12-21] MEDS ORDERED: Lactated Ringer's 1,000 ML IV SCH (15:45)
[2017-12-21] MEDS ORDERED: Oxycodone/Acetaminophen 5/325 mg Tab PO PRN ×2 (15:46)
--- NOTE | 2017-12-21 15:49 | PCM.SURG1 ---
Surgeon's Initial Post Op Note - Surgeon's Notes Surgeon: Dr. Palacios Professional Skater: Migdalia PGY2 Type of Anesthesia: General Endo Anesthesia Administered By: Dr. Burns Pre-Operative Diagnosis: Acute appendicitis Operative Findings: Acute appendicitis Post-Operative Diagnosis: Acute appendicitis Operation Performed: Laparoscopic Appendectomy Specimen/Specimens Removed: Appendix Estimated Blood Loss: EBL {In ML}: 5 Blood Products Given: N/A Drains Used: No Drains Post-Op Condition: Good Date of Surgery/Procedure: 12/21/17 Time of Surgery/Procedure: 15:49
[2017-12-22 03:47] VITALS: O2SAT 98
[2017-12-22] MEDS: Piperacillin/Tazobact 3.375 GM in Sodium Chloride 0.9% 100 ML IVPB SCH ×2 (03:47→09:30)
[2017-12-22 06:23] LABS: MEAN CORPUSCULAR HEMOGLOBIN 30.5 pg (27.0-31.0); MEAN CORPUSCULAR HGB CONC 35.1 g/dL (33.0-37.0); RBC 4.58 Mil/uL (4.40-5.90); RED CELL DISTRIBUTION WIDTH 12.8 % (11.5-14.5)
[2017-12-22 06:46] LABS: BLOOD UREA NITROGEN 10 mg/dl (9-20); CALCIUM 8.5 mg/dL (8.4-10.2); GFR NON-AFRICAN AMERICAN > 60
--- NOTE | 2017-12-22 07:32 | CP.PCM.PN ---
Subjective - Date & Time of Evaluation Date of Evaluation: 12/22/17 Time of Evaluation: 07:32 Objective - Vital Signs/Intake and Output Vital Signs (last 24 hours): Temp Pulse Resp BP Pulse Ox 97.9 F 61 16 102/58 L 98 12/22/17 03:47 12/22/17 03:47 12/22/17 03:47 12/22/17 03:47 12/22/17 03:47 - Medications Medications: Current Medications Lactated Ringer's (Lactated Ringer's) 1,000 mls @ 100 mls/hr IV .Q10H [facility] Stop: 12/23/17 04:16 Last Admin: 12/21/17 16:40 Dose: 100 mls Piperacillin Sod/Tazobactam (Sod 3.375 gm/ Sodium Chloride) 100 mls @ 100 mls/ hr IVPB Q6 [facility] PRN Reason: Protocol Stop: 12/23/17 10:01 Last Admin: 12/22/17 03:47 Dose: 100 mls/hr Lactated Ringer's (Lactated Ringer's) 1,000 mls @ 75 mls/hr IV .[id number] [facility] Ondansetron HCl (Zofran Inj) 4 mg IVP Q4 PRN PRN Reason: Nausea/Vomiting Oxycodone/Acetaminophen (Percocet 5/325 Mg Tab) 1 tab PO Q4 PRN PRN Reason: Pain, moderate (4-7) Stop: 12/24/17 15:47 Last Admin: 12/21/17 23:25 Dose: 1 tab Oxycodone/Acetaminophen (Percocet 5/325 Mg Tab) 2 tab PO Q4 PRN PRN Reason: Pain, severe (8-10) Stop: 12/24/17 15:47 Pantoprazole Sodium (Protonix Inj) 40 mg IVP DAILY [facility] Last Admin: 12/21/17 09:12 Dose: 40 mg Saccharomyces Boulardii (Florastor) 250 mg PO BID [facility] - Labs Labs: 12/22/17 05:40 12/22/17 05:40 PT 13.7 Seconds (9.8-13.1) H 12/20/17 23:28 INR 1.2 12/20/17 23:28 APTT 33.8 Seconds (25.6-37.1) 12/20/17 23:28
[2017-12-22 07:55] VITALS: BP 102/66; PULSE 59; RESP 19; TEMP 98.3
--- NOTE | 2017-12-22 08:11 | OP ---
PROCEDURE DATE: 12/21/17 PREOPERATIVE DIAGNOSIS: Acute appendicitis. POSTOPERATIVE DIAGNOSIS: Acute appendicitis. PROCEDURE: Laparoscopic appendectomy. SURGEON: Esau Palacios MD. FORM DRAFTER: Hector Negron DO. TYPE OF ANESTHESIA: General with endotracheal intubation. ANESTHESIOLOGIST: Alejandro Burns DO. IV FLUIDS: Crystalloids. ESTIMATED BLOOD LOSS: 5 mL. INTRAOPERATIVE FINDINGS: Acute appendicitis. SPECIMEN: Appendix. BRIEF HISTORY: Mr. Monsalve is a very pleasant 22-year-old gentleman who presented to the hospital complaining of lower right-sided abdominal pain and upon further investigation on CAT scan, the patient was found to have elevated white blood cell count as well as CAT scan findings significant for acute appendicitis. All the risks and benefits of the procedure were explained to the patient and with the patient having full understanding of all the risks and benefits involved, informed consent was obtained and the patient was taken to the operating room for above-stated procedure. DESCRIPTION OF PROCEDURE: The patient was brought into the operating room and placed supine on the operating room table. Bilateral Flowtron boots were applied to the patient's lower extremities. After successful induction of anesthesia and successful endotracheal intubation by the anesthesia team, the patient's abdomen was shaved and prepped with ChloraPrep stick and draped in a standard surgical fashion. Prior to that, Ellis catheter was inserted into the patient's urinary bladder. Once this was accomplished, the patient's abdomen was prepped with ChloraPrep stick and draped in a standard surgical fashion. Prior to the beginning of the procedure, time-out was called in the room and everyone in the room were in agreement. Using Veress needle, the patient's abdomen was entered at the umbilicus and pneumoperitoneum was achieved with good opening pressures. Once this was accomplished, using a #11 blade scalpel knife, approximately 5 mm incision was made in the umbilicus in the longitudinal fashion and subsequent to that 5 mm trocar was introduced into the patient's abdomen. At this point in time, 5 mm 0 degree scope was introduced into the patient's abdomen and abdomen was inspected. Immediately, we were able to visualize the appendix in the right lower quadrant that appeared to be inflamed. Then, attention was turned to the lower midabdomen using #11 blade scalpel knife approximately, a 5 mm incision was made in the transverse fashion and subsequent to that the 5 mm trocar was introduced into the patient's abdomen. Then, attention was turned to the left lower quadrant of the patient's abdomen, using #11 blade scalpel knife, a 1 cm incision was made in the transverse fashion and subsequent to that 12 mm trocar was introduced into the patient's abdomen. At this point in time, using 2 graspers, the appendix was mobilized and subsequent to that using Harmonic scalpel, the appendix was freed up from the lateral attachments to the abdominal wall and mesoappendix was taken with the Harmonic scalpel. Once the mesoappendix was completely freed up from the appendix, appendix was taken right at the base with a blue load 45 mm on an Endo MARGY stapler. At this point in time, there appeared to be another small sliver of tissue that was taken with a stern load 45 mm on Endo MARGY stapler. Once this was accomplished and appendix was freed up and EndoCatch bag was introduced into the patient's abdomen. Appendix was placed inside of the bag and the bag was closed at this point in time. Staple line was inspected for hemostasis. Right lower quadrant hemostasis was confirmed. So at this point in time, a 12 mm trocar together with EndoCatch bag and appendix were removed from the patient's abdomen and passed off to [facility] as a specimen. Fascial layer of the left lower quadrant 12 mm trocar site was closed with one interrupted 0 Vicryl suture on UR-6 needle. Subsequent to that, the patient's abdomen was fully desufflated. The rest of the trocars were removed from the patient's abdomen and skin was closed with 4-0 Monocryl suture in a running subcuticular fashion. At the end of the procedure, incision sites were infiltrated with Marcaine anesthetic. The patient's abdomen was washed and dried and Dermabond was applied to the site of the incisions. Ellis catheter was removed from the patient's urinary bladder. The patient was successfully extubated by the anesthesia team, transferred to the stretcher and taken to the recovery room in a stable condition. At the end of the procedure, all instrument counts, needles and sponges were correct. Esau Palacios MD
--- NOTE | 2017-12-22 08:40 | CP.PCM.PN ---
Subjective - Date & Time of Evaluation Date of Evaluation: 12/22/17 Time of Evaluation: 07:00 - Subjective Subjective: Surgery: Dr. Palacios Pt seen and examined. s/p lap appendectomy; POD#1. Pt states he feels well and pain is well controlled. He admits to tolerating his diet and ambulating. Denies any nausea/vomiting, fevers/chills. Objective - Vital Signs/Intake and Output Vital Signs (last 24 hours): Temp Pulse Resp BP Pulse Ox 98.3 F 59 L 19 102/66 98 12/22/17 07:54 12/22/17 07:54 12/22/17 07:54 12/22/17 07:54 12/22/17 07:54 - Medications Medications: Current Medications Lactated Ringer's (Lactated Ringer's) 1,000 mls @ 100 mls/hr IV .Q10H [facility] Stop: 12/23/17 04:16 Last Admin: 12/21/17 16:40 Dose: 100 mls Piperacillin Sod/Tazobactam (Sod 3.375 gm/ Sodium Chloride) 100 mls @ 100 mls/ hr IVPB Q6 [facility] PRN Reason: Protocol Stop: 12/23/17 10:01 Last Admin: 12/22/17 03:47 Dose: 100 mls/hr Lactated Ringer's (Lactated Ringer's) 1,000 mls @ 75 mls/hr IV .[id number] [facility] Ondansetron HCl (Zofran Inj) 4 mg IVP Q4 PRN PRN Reason: Nausea/Vomiting Oxycodone/Acetaminophen (Percocet 5/325 Mg Tab) 1 tab PO Q4 PRN PRN Reason: Pain, moderate (4-7) Stop: 12/24/17 15:47 Last Admin: 12/21/17 23:25 Dose: 1 tab Oxycodone/Acetaminophen (Percocet 5/325 Mg Tab) 2 tab PO Q4 PRN PRN Reason: Pain, severe (8-10) Stop: 12/24/17 15:47 Pantoprazole Sodium (Protonix Inj) 40 mg IVP DAILY [facility] Last Admin: 12/21/17 09:12 Dose: 40 mg Saccharomyces Boulardii (Florastor) 250 mg PO BID [facility] - Labs Labs: 12/22/17 05:40 12/22/17 05:40 PT 13.7 Seconds (9.8-13.1) H 12/20/17 23:28 INR 1.2 12/20/17 23:28 APTT 33.8 Seconds (25.6-37.1) 12/20/17 23:28 - Constitutional Appears: Well, No Acute Distress - Eye Exam Eye Exam: Normal appearance - ENT Exam ENT Exam: Mucous Membranes Moist - Respiratory Exam Respiratory Exam: NORMAL BREATHING PATTERN - Cardiovascular Exam Cardiovascular Exam: RRR - GI/Abdominal Exam GI & Abdominal Exam: Soft, Tenderness (around incision sites, C/D/I ). absent: Distended, Rebound - Neurological Exam Neurological Exam: Alert, Awake, Oriented x3 - Skin Skin Exam: Dry, Warm Assessment and Plan - Assessment and Plan (Free Text) Assessment: 22M with acute appendicitis s/p lap appendectomy; POD#1 Plan: - ok to DC home from surgical standpoint - f/u with Dr. Palacios in 1-2 weeks - d/w Dr. Suzanne Sousa
--- NOTE | 2017-12-22 08:48 | CP.PCM.DIS ---
Provider - Provider Date of Admission: 12/21/17 04:29 Attending physician: Eleazar Mitchell Primary care physician: No PMD Consults: Dr. Fay- General Surgery Time Spent in preparation of Discharge (in minutes): 30 Diagnosis - Discharge Diagnosis (1) Appendicitis Status: Acute Hospital Course - Lab Results Lab Results: Micro Results 12/21/17 02:25 Blood-Venous Blood Culture - Preliminary NO GROWTH AFTER 24 HOURS 12/21/17 03:10 Blood-Venous Blood Culture - Preliminary NO GROWTH AFTER 24 HOURS Most Recent Lab Values WBC 8.0 K/uL (4.8-10.8) 12/22/17 05:40 RBC 4.58 Mil/uL (4.40-5.90) 12/22/17 05:40 Hgb 14.0 g/dL (12.0-18.0) 12/22/17 05:40 Hct 39.9 % (35.0-51.0) 12/22/17 05:40 MCV 87.0 fl (80.0-94.0) 12/22/17 05:40 MCH 30.5 pg (27.0-31.0) 12/22/17 05:40 MCHC 35.1 g/dL (33.0-37.0) 12/22/17 05:40 RDW 12.8 % (11.5-14.5) 12/22/17 05:40 Plt Count 162 K/uL (130-400) 12/22/17 05:40 MPV 7.8 fl (7.2-11.7) 12/21/17 07:01 Neut % (Auto) 75.3 % (50.0-75.0) H 12/21/17 07:01 Lymph % (Auto) 17.0 % (20.0-40.0) L 12/21/17 07:01 [place] % (Auto) 7.1 % (0.0-10.0) 12/21/17 07:01 Eos % (Auto) 0.1 % (0.0-4.0) 12/21/17 07:01 Baso % (Auto) 0.5 % (0.0-2.0) 12/21/17 07:01 Neut # (Auto) 8.4 K/uL (1.8-7.0) H 12/21/17 07:01 Lymph # (Auto) 1.9 K/uL (1.0-4.3) 12/21/17 07:01 [place]ke # (Auto) 0.8 K/uL (0.0-0.8) 12/21/17 07:01 Eos # (Auto) 0.0 K/uL (0.0-0.7) 12/21/17 07:01 Baso # (Auto) 0.1 K/uL (0.0-0.2) 12/21/17 07:01 Neutrophils % (Manual) 88 % (42-75) H 12/20/17 23:28 Band Neutrophils % 1 % (0-2) 12/20/17 23:28 Lymphocytes % (Manual) 6 % (20-50) L 12/20/17 23:28 Monocytes % (Manual) 5 % (0-10) 12/20/17 23:28 Platelet Estimate Normal (NORMAL) 12/20/17 23:28 Large Platelets Present 12/20/17 23:28 PT 13.7 Seconds (9.8-13.1) H 12/20/17 23:28 INR 1.2 12/20/17 23:28 APTT 33.8 Seconds (25.6-37.1) 12/20/17 23:28 pO2 21 mm/Hg (30-55) L 12/20/17 23:46 VBG pH 7.35 (7.32-7.43) 12/20/17 23:46 VBG pCO2 52 mmHg (40-60) 12/20/17 23:46 VBG HCO3 24.8 mmol/L 12/20/17 23:46 VBG Total CO2 30.3 mmol/L (22-28) H 12/20/17 23:46 VBG O2 Sat (Calc) 35.1 % (40-65) L 12/20/17 23:46 VBG Base Excess 2.1 mmol/L (0.0-2.0) H 12/20/17 23:46 VBG Potassium 4.1 mmol/L (3.6-5.2) 12/20/17 23:46 Sodium 136.0 mmol/L (132-148) 12/20/17 23:46 Chloride 102.0 mmol/L (98-107) 12/20/17 23:46 Glucose 113 mg/dL (75-110) H 12/20/17 23:46 Lactate 1.4 mmol/L (0.7-2.1) 12/20/17 23:46 FiO2 21.0 % 12/20/17 23:46 Sodium 138 mmol/l (132-148) 12/22/17 05:40 Potassium 3.8 MMOL/L (3.6-5.0) 12/22/17 05:40 Chloride 104 mmol/L (98-107) 12/22/17 05:40 Carbon Dioxide 27 mmol/L (22-30) 12/22/17 05:40 Anion Gap 11 (10-20) 12/22/17 05:40 BUN 10 mg/dl (9-20) 12/22/17 05:40 Creatinine 1.2 mg/dl (0.8-1.5) 12/22/17 05:40 Est GFR ( Amer) > 60 12/22/17 05:40 Est GFR (Non-Af Amer) > 60 12/22/17 05:40 Random Glucose 72 mg/dL (75-110) L 12/22/17 05:40 Calcium 8.5 mg/dL (8.4-10.2) 12/22/17 05:40 Total Bilirubin 0.9 mg/dl (0.2-1.3) 12/20/17 23:28 AST 25 U/L (17-59) 12/20/17 23:28 ALT 37 U/L (21-72) 12/20/17 23:28 Alkaline Phosphatase 75 U/L (38-126) 12/20/17 23:28 Total Protein 8.3 G/DL (6.3-8.2) H 12/20/17 23:28 Albumin 4.5 g/dL (3.5-5.0) 12/20/17 23:28 Globulin 3.8 gm/dL (2.2-3.9) 12/20/17 23:28 Albumin/Globulin Ratio 1.2 (1.0-2.1) 12/20/17 23:28 Lipase 99 U/L (23-300) 12/20/17 23:28 Venous Blood Potassium 4.1 mmol/L (3.6-5.2) 12/20/17 23:46 Urine Color Straw (YELLOW) 12/20/17: Urine Clarity Clear (Clear) 12/20/17: Urine pH 7.0 (5.0-8.0) 12/20/17 Ur Specific [place] 1.006 (1.003-1.030) 12/20/17 23: Urine Protein Negative mg/dL (NEGATIVE) 12/20/17: Urine Glucose (UA) Neg mg/dL (Normal) 12/20/17 Urine Ketones Negative mg/dL (NEGATIVE) 12/20/17: Urine Blood Negative (NEGATIVE) 12/20/17: Urine Nitrate Negative (NEGATIVE) 12/20/17: Urine Bilirubin Negative (NEGATIVE) 12/20/17: Urine Urobilinogen 0.2-1.0 mg/dL (0.2-1.0) 12/20/17: Ur Leukocyte Esterase Neg Raul/uL (Negative) 12/20/17: Urine RBC (Auto) 1 /hpf (0-3) 12/20/17: Urine Microscopic WBC < 1 /hpf (0-5) 12/20/17 23:28 Blood Type B POSITIVE 12/20/17 22:55 Blood Type Confirm B POSITIVE 12/21/17 00:31 Antibody Screen Negative 12/20/17 22:55 BBK History Checked No verified bt 12/20/17 22:55 - Hospital Course Hospital Course: 22 years old male, here in the [facility] from [place] one month ago, comes with 2 days of sharp, generalized abdominal pain, most severe at the RLQ and radiating to the mid right back and to the right groin, associated with nausea and vomiting and mild dizziness experienced in the ED. The pain was not relieved with Omeprazole. Patient reports these same symptoms occurred over a month ago in [facility] where CT abdomen was performed and he was diagnosed with Acute Appendicitis. He was treated with medical management and symptoms improved. ED course: Patient was afebrile. - V/S: T: 97.8 F; HR: 83; BP: 99/66 ; Pulse ox: 99% RA - LABS: 11.2 > 15.1 / 44.1 < 181 139/4.1 ; 102/27 ; 9/0.9 < 110 Lipase: 99 - U/A: Negative - EKG: Normal sinus rhythm - Pertinent physical exam findings: Abdomen: decreased bowel sounds, Tenderness to palpation RLQ, mild localized rebound tenderness. - CT abdomen findings: Acute appendicitis; Trace free fluid right deep pelvis; Large amount of retained feces throughout the colon. General surgery was consulted, Dr. Fay. Floor course: Patient continued to be afebrile. Patient's pain was managed with Morphine. Nausea managed with Zofran and he was given IVF and kept NPO for surgery. Enema was given for constipation. Patient tolerated the procedure well. White count trended down from 11.2 to 8.0 and patient reported decreased abdominal pain. Discharge Exam - Head Exam Head Exam: ATRAUMATIC, NORMAL INSPECTION, NORMOCEPHALIC - ENT Exam ENT Exam: Mucous Membranes Moist - Respiratory Exam Respiratory Exam: Clear to PA & Lateral, NORMAL BREATHING PATTERN. absent: Chest Wall Tenderness, Decreased Breath Sounds, Rales, Rhonchi, Wheezes, Respiratory Distress - Cardiovascular Exam Cardiovascular Exam: REGULAR RHYTHM, RRR, +S1, +S2. absent: Diastolic murmur, Gallop, JVD, +S4, Systolic Murmur - GI/Abdominal Exam GI & Abdominal Exam: Normal Bowel Sounds (3 abdominal incisions present (LLQ, umbilical and mid-lower abdomen). Incisions clean, non-draining, healing well. ) , Soft, Tenderness (Mild Tenderness to palpation on RLQ.). absent: Diminished Bowel Sounds, Distended, Firm, Guarding, Mass, Organomegaly, Pulsatile Mass, Rebound, Rigid - Extremities Exam Extremities exam: normal inspection - Back Exam Back exam: NORMAL INSPECTION - Neurological Exam Neurological exam: Alert, Oriented x3 - Psychiatric Exam Psychiatric exam: Normal Affect, Normal Mood - Skin Skin Exam: Dry, Intact, Normal Color, Warm Discharge Plan - Discharge Medications Prescriptions: Amoxicillin/Clavulanate [Augmentin 875 MG-125 MG] 1 tab PO Q12 #14 tab oxyCODONE/Acetaminophen [Percocet 5/325 mg Tab] 1 tab PO Q6 #15 tab - Follow Up Plan Condition: GOOD Disposition: HOME/ ROUTINE Patient education suggested?: Yes Instructions: Appendectomy, Laparoscopic Surgery (DC) Additional Instructions: Discharge instructions: - follow up [facility] in 1-2 weeks. - f/u with Dr. Palacios in 1-2 weeks - Script for Percocet for pain- 1 tab Q6H prn #15. - Script for Augmentin 875mg / 125mg 1 tab Q12H #14. Referrals: [facility] [place] [Outside] Esau Palacios MD [Staff Provider] -
[2017-12-22] MEDS ORDERED: Saccharomyces Boulardi 250 mg Cap PO SCH (09:00)
[2017-12-22] MEDS: Lactated Ringer's 1,000 ML IV SCH (12:18)
== END 2017-12-22 15:40 | disposition home or self-care (01) ==
LOC: H.ER 21:06 → INTOOBSV 12-21 04:29 → H.ERHOLD 12-21 04:29 → H.MEDSURG1 12-21 06:18
PROVIDERS: ADMIT Internal Medicine; ATTEND Internal Medicine
DX: K35.80 Unspecified acute appendicitis (principal); K38.1 Appendicular concretions; K59.00 Constipation, unspecified
CPT/HCPCS: 36415; 44970; 74177; 80048; 80053; 81003; 82803; 83690; 85025; 85027; 85610; 85730; 86850; 86900; 87040; 88304; 93005; 96360; 96365; 96374; 99284; C9113; G0378; J1885; J2175; J2250; J2270; J2405; J2543; J2704; J2765; J3010; J7030; J7120; Q9967